=== PATIENT | male | born 1955 | race African-American/Black ===

== ENCOUNTER → 2017-09-27 | Outpatient (CLI) | payer OTHER ==
[~2017-09-27] MED LIST: ALL DAY ALLERGY10 M1 PO; ALLO100 PO; AMLO10 PO; AMLO5; ASPI81CH PO; ATEN50 PO; Aldactone25 MG PO; Allopurinol100 MG PO; Amlodipine Besyl5 MG PO; B Complex1 EAC2 PO; BUME2 PO; CALCAVITD PO; CETI5 PO; CHOL10002 PO; CILO100 PO; CILO50 PO; CITA20; CITA20 PO; CLOP75 PO; Ceftriaxone2 G1 IV; Celexa40 MG PO; Citalopram HBr20 MG PO; Cyclobenzaprine5 MG PO; EPIVIR 10 MG/ML PO; EPIVIR HBV PO; ERGO50000 PO; Flomax0.4 MG PO; HYDACE10B PO; HYDR-86; HYDR1TAB94 PO; IBUP800 PO; K-Dur 20 meq T20 MEQ PO; Keflex500 MG PO; LEVSOD50 PO; LEVSOD75 PO; LISI5 PO; Lipofen150 MG; Lofibra160 MG PO; Lopressor 25 mg25 MG PO; MAGOXI400 PO; METO2.5 PO; METO25 PO; METO5 PO; MULVITMIND PO; NIAC500 PO; NICO21TP; NORT25 PO; OMEP20ER PO; PARO20 PO; POTCHL20ER PO; PRAZ1; PRAZ2 PO; PRED10 PO; PRED20 PO; Percocet 5-3251 EACH PO; Prilosec Otc20 MG; SALS750 PO; SPIR25 PO; TAMS.4ER PO; TRAZ50 PO; TRAZAMINE PO; Vitamin B Comple1 EA PO; Vitamin D2000 UNIT PO
[2017-09-27 14:21] LABS: Creatinine, Urine Random 37.1 mg/dL (27.00-270.00); Protein, Urine Random 127.2 mg/dL (0.0-11.9)
== END ==
LOC: OLS 11:04 → LAB SHORT 11:04
PROVIDERS: Internal Medicine
DX: N18.3 Chronic kidney disease, stage 3 (moderate) (principal)
CPT/HCPCS: 82570; 84156

== ENCOUNTER → 2018-01-03 | Outpatient (CLI) | payer OTHER ==
[2018-01-03 10:09] LABS: Creatinine Urine 95.7 mg/dL (27.00-270.00); Protein, Urine Quantitative 161.9 mg/dL (0.0-11.9)
== END ==
LOC: LAB SHORT 09:07 → LAB 09:07
PROVIDERS: Internal Medicine
DX: N18.3 Chronic kidney disease, stage 3 (moderate) (principal)
CPT/HCPCS: 81050; 82570; 84156

== ENCOUNTER 2018-12-15 10:07 | Emergency (ER) | payer OTHER ==
[~2018-12-15] VITALS: Ht 177.8 cm; Wt 88.9 kg
[2018-12-15] MEDS ORDERED: TAMSULOSIN HCL0.4 MG PO (10:34)
[2018-12-15] MEDS ORDERED: Vitamin D2000 UNIT PO (10:34)
== END 2018-12-15 10:49 | disposition home or self-care (01) ==
LOC: ER 10:07
DX: S00.33XA Contusion of nose, initial encounter (principal); W21.11XA Struck by baseball bat, initial encounter; Z79.899 Other long term (current) drug therapy; Z91.013 Allergy to seafood; I13.0 Hypertensive heart and chronic kidney disease with heart failure and stage 1 through stage 4 chronic kidney disease, or unspecified chronic kidney disease; I50.9 Heart failure, unspecified; N18.9 Chronic kidney disease, unspecified; E03.9 Hypothyroidism, unspecified; E78.5 Hyperlipidemia, unspecified; F17.200 Nicotine dependence, unspecified, uncomplicated
CPT/HCPCS: 99283

== ENCOUNTER → 2019-01-13 | Outpatient (CLI) | payer OTHER ==
[~2019-01-13] MED LIST changes: +TAMSULOSIN HCL0.4 MG PO
[2019-01-13 19:06] LABS: BASOPHILS ABSOLUTE AUTO 0.06 K/mm3 (0.00-0.23); BASOPHILS PERCENT AUTO 1 % (0-2); EOSINOPHILS ABSOLUTE AUTO 0.09 K/mm3 (0.00-0.68); EOSINOPHILS PERCENT AUTO 2 % (0-6); Hemoglobin 17.5 g/dL (13.5-17.5); IMMATURE GRAN ABSOLUTE AUTO 0.04 K/mm3 (0.00-0.10); IMMATURE GRAN PERCENT AUTO 1 % (0-1); LYMPHOCYTES ABSOLUTE AUTO 1.46 K/mm3 (0.84-5.20); LYMPHOCYTES PERCENT AUTO 26 % (21-46); MONOCYTES ABSOLUTE AUTO 0.45 K/mm3 (0.16-1.47); MONOCYTES PERCENT AUTO 8 % (4-13); Mean Corpuscular HGB 32.8 pg (26.0-34.0); Mean Corpuscular HGB Conc 34.3 g/dL (31.5-36.5); Mean Corpuscular Volume 96 fL (80-100); Mean Platelet Volume 10.9 fL (9.1-12.4); NEUTROPHILS PERCENT AUTO 63 % (41-73); Platelet Count 309 K/mm3 (150-400); RDW Coefficient Variation 12.7 % (11.7-14.2); RDW Standard Deviation 45.2 fL (35.1-46.3); Red Blood Cell Count 5.34 M/mm3 (4.30-5.90)
[2019-01-13 19:29] LABS: Albumin, Blood 3.5 g/dL (3.4-5.0); Albumin/Globulin Ratio 0.7 (0.8-1.8); Alk Phos 129 U/L (50-136); Anion Gap 4 mmol/L (6-16); Aspartate Aminotrans (AST/SGOT 76 U/L (12-37); Bilirubin, Total 0.4 mg/dL (0.1-1.0); Blood Urea Nitrogen 26 mg/dL (8-24); Bun/Creatinine Ratio 16.8 (12.0-20.0); CHOL/HDL RATIO 2.4; CO2, Blood 30 mmol/L (21-32); Calcium, Blood 8.9 mg/dL (8.5-10.1); Chloride, Blood 103 mmol/L (98-108); Cholesterol 169 mg/dL (50-200); Creatinine, Blood 1.55 mg/dL (0.60-1.20); Globulin, Blood 5.1 g/dL (2.2-4.0); Glomerular Filtration Rate 48 (60-); Glucose, Blood 86 mg/dL (70-99); HDL Cholesterol 70 mg/dL (>39); LDL/HDL RATIO 1.2; Low Density Lipoprotein Chol 84 mg/dL (0-110); Potassium, Blood 4.2 mmol/L (3.5-5.5); Sodium, Blood 137 mmol/L (136-145); Total Protein, Blood 8.6 g/dL (6.4-8.2); Triglycerides 74 mg/dL (30-160); Very Low Density Lipoprot Chol 14 mg/dL (6-32)
[2019-01-13 19:32] LABS: C-Reactive Protein, High Sens. <O.160 mg/L (0.000-3.000)
[2019-01-13 19:38] LABS: Alanine Aminotransfer (ALT/SGP 80 U/L (12-78)
[2019-01-14 11:10] LABS: Antinuclear Antibody Screen Negative (Negative)
[2019-01-14 13:35] LABS: Rheumatoid Factor, Serum Negative (Negative)
== END | disposition home or self-care (01) ==
LOC: LAB SHORT 11:35 → LAB 11:35
PROVIDERS: Nurse Practitioner Family
DX: Z11.59 Encounter for screening for other viral diseases (principal); I10 Essential (primary) hypertension; F10.20 Alcohol dependence, uncomplicated; M19.90 Unspecified osteoarthritis, unspecified site; E55.9 Vitamin D deficiency, unspecified; N40.0 Benign prostatic hyperplasia without lower urinary tract symptoms
CPT/HCPCS: 80053; 80061; 82306; 83690; 84443; 85025; 86038; 86141; 86430; 86803; G0103

== ENCOUNTER → 2019-01-29 | Outpatient (CLI) | payer OTHER ==
[2019-01-29 16:06] LABS: Creatinine Urine 40.5 mg/dL (27.00-270.00)
== END | disposition home or self-care (01) ==
LOC: LAB SHORT 07:45 → LAB 07:45 → LAB FUT 01-27 13:30
PROVIDERS: Internal Medicine Nephrology
DX: E11.22 Type 2 diabetes mellitus with diabetic chronic kidney disease (principal); N18.2 Chronic kidney disease, stage 2 (mild); D63.1 Anemia in chronic kidney disease; E11.21 Type 2 diabetes mellitus with diabetic nephropathy; N25.81 Secondary hyperparathyroidism of renal origin; E55.9 Vitamin D deficiency, unspecified; R76.9 Abnormal immunological finding in serum, unspecified; R94.5 Abnormal results of liver function studies; R94.6 Abnormal results of thyroid function studies; D51.8 Other vitamin B12 deficiency anemias; D52.8 Other folate deficiency anemias; D50.9 Iron deficiency anemia, unspecified
CPT/HCPCS: 81050; 82043; 82570; 84156

== ENCOUNTER → 2019-03-19 | Outpatient (CLI) | payer OTHER ==
[2019-03-19 19:41] LABS: International Normalized Ratio 1.08; Prothrombin Time Results 11.4 Sec (9.7-11.5)
[2019-03-21 02:07] LABS: HBSAG SCREEN Negative (Negative)
== END | disposition home or self-care (01) ==
LOC: LAB 13:45 → LAB SHORT 13:45
PROVIDERS: Nurse Practitioner Family
DX: B18.2 Chronic viral hepatitis C (principal); N40.0 Benign prostatic hyperplasia without lower urinary tract symptoms
CPT/HCPCS: 84153; 85610

== ENCOUNTER → 2019-07-21 | Outpatient (CLI) | payer OTHER ==
[2019-07-21 18:03] LABS: BASOPHILS ABSOLUTE AUTO 0.03 K/mm3 (0.00-0.23); BASOPHILS PERCENT AUTO 1 % (0-2); EOSINOPHILS ABSOLUTE AUTO 0.04 K/mm3 (0.00-0.68); EOSINOPHILS PERCENT AUTO 1 % (0-6); Hematocrit 47.6 % (37.0-53.0); Hemoglobin 16.4 g/dL (13.5-17.5); IMMATURE GRAN ABSOLUTE AUTO 0.03 K/mm3 (0.00-0.10); IMMATURE GRAN PERCENT AUTO 1 % (0-1); LYMPHOCYTES ABSOLUTE AUTO 1.59 K/mm3 (0.84-5.20); LYMPHOCYTES PERCENT AUTO 28 % (21-46); MONOCYTES ABSOLUTE AUTO 0.52 K/mm3 (0.16-1.47); MONOCYTES PERCENT AUTO 9 % (4-13); Mean Corpuscular HGB 33.1 pg (26.0-34.0); Mean Corpuscular HGB Conc 34.5 g/dL (31.5-36.5); Mean Corpuscular Volume 96 fL (80-100); Mean Platelet Volume 10.7 fL (9.1-12.4); NEUTROPHILS ABSOLUTE AUTO 3.41 K/mm3 (1.96-9.15); NEUTROPHILS PERCENT AUTO 61 % (41-73); Platelet Count 262 K/mm3 (150-400); RDW Coefficient Variation 12.6 % (11.7-14.2); Red Blood Cell Count 4.96 M/mm3 (4.30-5.90); White Blood Cell Count 5.62 K/mm3 (4.00-11.30)
[2019-07-21 18:26] LABS: Albumin, Blood 3.2 g/dL (3.4-5.0); Albumin/Globulin Ratio 0.6 (0.8-1.8); Bilirubin, Total 1.1 mg/dL (0.1-1.0); Bun/Creatinine Ratio 13.1 (12.0-20.0); Calcium, Blood 9.8 mg/dL (8.5-10.1); Creatinine, Blood 1.68 mg/dL (0.60-1.20); Potassium, Blood 3.9 mmol/L (3.5-5.5); Total Protein, Blood 8.2 g/dL (6.4-8.2)
== END | disposition home or self-care (01) ==
LOC: LAB SHORT 16:38 → LAB 16:38
PROVIDERS: Nurse Practitioner Family
DX: B19.20 Unspecified viral hepatitis C without hepatic coma (principal)
CPT/HCPCS: 80053; 85025

== ENCOUNTER 2019-09-23 11:17 | Day surgery (SDC) | payer OTHER ==
[~2019-09-23] VITALS: Ht 177.8 cm; Wt 85.7 kg
[2019-09-23] MEDS ORDERED: Catapres-Tts 11 EACH (11:41)
[2019-09-23] MEDS ORDERED: LOSA25 (11:41)
[2019-09-23] MEDS ORDERED: OMEP20ER (11:42)
== END 2019-09-23 13:45 | disposition home or self-care (01) ==
LOC: ORSCSDS 11:17
PROVIDERS: Internal Medicine Gastroenterology
PROC: 0DB68ZX Excision of Stomach, Via Natural or Artificial Opening Endoscopic, Diagnostic (ICD-10-PCS; principal; 2019-09-23 12:45)
PROC: 0D757ZZ Dilation of Esophagus, Via Natural or Artificial Opening (ICD-10-PCS; principal; 2019-09-23 12:45)
DX: K21.9 Gastro-esophageal reflux disease without esophagitis (principal); R10.13 Epigastric pain; K22.2 Esophageal obstruction; B18.2 Chronic viral hepatitis C; Z13.810 Encounter for screening for upper gastrointestinal disorder; G47.33 Obstructive sleep apnea (adult) (pediatric); I10 Essential (primary) hypertension; F17.210 Nicotine dependence, cigarettes, uncomplicated; Z79.899 Other long term (current) drug therapy
CPT/HCPCS: 88305; J2704; J7120

== ENCOUNTER → 2019-10-08 | Outpatient (CLI) | payer MEDICARE, OTHER ==
[~2019-10-08] MED LIST changes: +Catapres-Tts 11 EACH; +LOSA25; +OMEP20ER
== END | disposition home or self-care (01) ==
LOC: LAB SHORT 16:22 → LAB 16:22
PROVIDERS: Nurse Practitioner Family
DX: R97.20 Elevated prostate specific antigen [PSA] (principal)
CPT/HCPCS: 84153

== ENCOUNTER → 2020-11-16 | Outpatient (CLI) | payer MEDICARE, OTHER ==
[~2020-11-16] MED LIST changes: +Acetaminophen325 M1 PO; +CHLO25 PO; +CLON.1 PO; +FAMO20 PO; +HYDRA25 PO; +LOSA25 PO; +ONDA4ODT MM; +Vitamin D2000 UNIT
[2020-11-16 19:35] LABS: Albumin, Blood 3.8 g/dL (3.4-5.0); Anion Gap 9 mmol/L (6-16); Blood Urea Nitrogen 13 mg/dL (8-24); CO2, Blood 28 mmol/L (21-32); Calcium, Blood 8.9 mg/dL (8.5-10.1); Chloride, Blood 98 mmol/L (98-108); Creatinine, Blood 1.44 mg/dL (0.60-1.20); Glomerular Filtration Rate 52 (60-); Glucose, Blood 93 mg/dL (70-99); Phosphorus, Blood 2.9 mg/dL (2.5-4.9); Potassium, Blood 3.1 mmol/L (3.5-5.5); Sodium, Blood 135 mmol/L (136-145)
== END | disposition home or self-care (01) ==
LOC: LAB 15:20 → LAB SHORT 15:20
PROVIDERS: Nurse Practitioner Family
DX: N18.30 Chronic kidney disease, stage 3 unspecified (principal)
CPT/HCPCS: 80069

== ENCOUNTER → 2021-02-27 | Outpatient (CLI) | payer MEDICARE, OTHER ==
[2021-02-27 18:20] LABS: BASOPHILS ABSOLUTE AUTO 0.05 K/mm3 (0.00-0.23); BASOPHILS PERCENT AUTO 1 % (0-2); EOSINOPHILS ABSOLUTE AUTO 0.18 K/mm3 (0.00-0.68); EOSINOPHILS PERCENT AUTO 3 % (0-6); Hematocrit 42.1 % (37.0-53.0); Hemoglobin 14.7 g/dL (13.5-17.5); IMMATURE GRAN ABSOLUTE AUTO 0.02 K/mm3 (0.00-0.10); IMMATURE GRAN PERCENT AUTO 0 % (0-1); LYMPHOCYTES ABSOLUTE AUTO 2.05 K/mm3 (0.84-5.20); LYMPHOCYTES PERCENT AUTO 31 % (21-46); MONOCYTES PERCENT AUTO 9 % (4-13); Mean Corpuscular HGB Conc 34.9 g/dL (31.5-36.5); Mean Corpuscular Volume 95 fL (80-100); Mean Platelet Volume 9.6 fL (9.1-12.4); NEUTROPHILS ABSOLUTE AUTO 3.79 K/mm3 (1.96-9.15); NEUTROPHILS PERCENT AUTO 57 % (41-73); Platelet Count 345 K/mm3 (150-400); RDW Coefficient Variation 12.9 % (11.7-14.2); RDW Standard Deviation 44.8 fL (35.1-46.3); Red Blood Cell Count 4.45 M/mm3 (4.30-5.90); White Blood Cell Count 6.69 K/mm3 (4.00-11.30)
[2021-02-27 18:44] LABS: Alanine Aminotransfer (ALT/SGP 26 U/L (12-78); Albumin, Blood 3.6 g/dL (3.4-5.0); Albumin/Globulin Ratio 0.7 (0.8-1.8); Alk Phos 131 U/L (50-136); Anion Gap 9 mmol/L (6-16); Aspartate Aminotrans (AST/SGOT 41 U/L (12-37); Bilirubin, Direct 0.1 mg/dL (0.0-0.3); Bilirubin, Indirect 0.4 mg/dL (0.1-0.7); Bilirubin, Total 0.5 mg/dL (0.1-1.0); Blood Urea Nitrogen 21 mg/dL (8-24); Bun/Creatinine Ratio 12.4 (12.0-20.0); CO2, Blood 30 mmol/L (21-32); Calcium, Blood 9.7 mg/dL (8.5-10.1); Chloride, Blood 99 mmol/L (98-108); Creatinine, Blood 1.69 mg/dL (0.60-1.20); Globulin, Blood 5.4 g/dL (2.2-4.0); Glomerular Filtration Rate 41 (60-); Glucose, Blood 95 mg/dL (70-99); Potassium, Blood 3.2 mmol/L (3.5-5.5); Sodium, Blood 138 mmol/L (136-145)
== END | disposition home or self-care (01) ==
LOC: LAB SHORT 16:36
PROVIDERS: Nurse Practitioner Family
DX: N18.30 Chronic kidney disease, stage 3 unspecified (principal); D63.1 Anemia in chronic kidney disease; C61 Malignant neoplasm of prostate
CPT/HCPCS: 80053; 82248; 84153; 85025

== ENCOUNTER → 2021-04-18 | Outpatient (CLI) | payer MEDICARE, OTHER ==
[2021-04-18 18:32] LABS: Alanine Aminotransfer (ALT/SGP 239 U/L (12-78); Albumin/Globulin Ratio 0.7 (0.8-1.8); Alk Phos 173 U/L (50-136); Anion Gap 7 mmol/L (6-16); Aspartate Aminotrans (AST/SGOT 465 U/L (12-37); Bilirubin, Direct 0.3 mg/dL (0.0-0.3); Bilirubin, Indirect 0.8 mg/dL (0.1-0.7); Bilirubin, Total 1.1 mg/dL (0.1-1.0); Blood Urea Nitrogen 15 mg/dL (8-24); CHOL/HDL RATIO 8.8; CO2, Blood 30 mmol/L (21-32); Calcium, Blood 9.3 mg/dL (8.5-10.1); Chloride, Blood 96 mmol/L (98-108); Cholesterol 175 mg/dL (50-200); Globulin, Blood 4.6 g/dL (2.2-4.0); Glucose, Blood 128 mg/dL (70-99); HDL Cholesterol 20 mg/dL (>39); Iron Serum 202 ug/dL (65-175); LDL/HDL RATIO Unable to Calculate; Low Density Lipoprotein Chol Unable to Calculate mg/dL (0-110); Percent Saturation 87.1 % (20.0-50.0); Potassium, Blood 2.6 mmol/L (3.5-5.5); Sodium, Blood 133 mmol/L (136-145); Total Iron Binding Capacity 232 ug/dL (250-450); Total Protein, Blood 7.6 g/dL (6.4-8.2); Triglycerides 477 mg/dL (30-160); Very Low Density Lipoprot Chol Unable to Calculate mg/dL (6-32)
[2021-04-18 18:54] LABS: Bun/Creatinine Ratio 9.8 (12.0-20.0); Creatinine, Blood 1.53 mg/dL (0.60-1.20); Ferritin, Serum 546 ng/mL (26-388); Glomerular Filtration Rate 46 (60-)
[2021-04-18 19:35] LABS: Albumin/Globulin Ratio 0.7 (0.8-1.8); Bilirubin, Total 1.1 mg/dL (0.1-1.0); Bun/Creatinine Ratio 9.3 (12.0-20.0); Calcium, Blood 9.1 mg/dL (8.5-10.1); Creatinine, Blood 1.62 mg/dL (0.60-1.20); Globulin, Blood 4.2 g/dL (2.2-4.0); Potassium, Blood 2.8 mmol/L (3.5-5.5); Total Protein, Blood 7.2 g/dL (6.4-8.2)
[2021-04-18 19:56] LABS: Prostate Specific Antigen 0.303 ng/mL (0.000-4.000)
== END | disposition home or self-care (01) ==
LOC: LAB SHORT 12:00
PROVIDERS: Internal Medicine Nephrology; Nurse Practitioner Family; Radiology Therapeutic Radiology
DX: C61 Malignant neoplasm of prostate (principal); E87.6 Hypokalemia; N18.2 Chronic kidney disease, stage 2 (mild); D63.1 Anemia in chronic kidney disease; R80.9 Proteinuria, unspecified; N25.81 Secondary hyperparathyroidism of renal origin; E55.9 Vitamin D deficiency, unspecified; E78.00 Pure hypercholesterolemia, unspecified; R76.9 Abnormal immunological finding in serum, unspecified; R94.5 Abnormal results of liver function studies; R94.6 Abnormal results of thyroid function studies; D51.8 Other vitamin B12 deficiency anemias; D52.8 Other folate deficiency anemias
CPT/HCPCS: 80053; 80061; 82248; 82607; 82728; 82746; 83540; 83550; 84100; 84153; 85018

== ENCOUNTER → 2021-08-30 | Outpatient (CLI) | payer MEDICARE, OTHER ==
[2021-08-30 17:48] LABS: Albumin, Blood 3.9 g/dL (3.4-5.0); Albumin/Globulin Ratio 0.9 (0.8-1.8); Bilirubin, Total 0.4 mg/dL (0.1-1.0); Bun/Creatinine Ratio 7.6 (12.0-20.0); Calcium, Blood 9.4 mg/dL (8.5-10.1); Creatinine, Blood 1.45 mg/dL (0.60-1.20); Globulin, Blood 4.4 g/dL (2.2-4.0); Total Protein, Blood 8.3 g/dL (6.4-8.2)
[2021-08-30 17:58] LABS: BASOPHILS ABSOLUTE AUTO 0.05 K/mm3 (0.00-0.23); BASOPHILS PERCENT AUTO 1 % (0-2); EOSINOPHILS ABSOLUTE AUTO 0.18 K/mm3 (0.00-0.68); EOSINOPHILS PERCENT AUTO 3 % (0-6); Hematocrit 43.6 % (37.0-53.0); Hemoglobin 14.8 g/dL (13.5-17.5); IMMATURE GRAN ABSOLUTE AUTO 0.04 K/mm3 (0.00-0.10); IMMATURE GRAN PERCENT AUTO 1 % (0-1); LYMPHOCYTES ABSOLUTE AUTO 1.41 K/mm3 (0.84-5.20); LYMPHOCYTES PERCENT AUTO 23 % (21-46); MONOCYTES ABSOLUTE AUTO 0.59 K/mm3 (0.16-1.47); MONOCYTES PERCENT AUTO 10 % (4-13); Mean Corpuscular HGB 32.5 pg (26.0-34.0); Mean Corpuscular HGB Conc 33.9 g/dL (31.5-36.5); Mean Corpuscular Volume 96 fL (80-100); Mean Platelet Volume 9.8 fL (9.1-12.4); NEUTROPHILS ABSOLUTE AUTO 3.94 K/mm3 (1.96-9.15); NEUTROPHILS PERCENT AUTO 64 % (41-73); Platelet Count 359 K/mm3 (150-400); RDW Standard Deviation 46.1 fL (35.1-46.3); Red Blood Cell Count 4.55 M/mm3 (4.30-5.90); White Blood Cell Count 6.21 K/mm3 (4.00-11.30)
== END | disposition home or self-care (01) ==
LOC: LAB 12:20 → LAB SHORT 12:20
PROVIDERS: Nurse Practitioner Family
DX: Z00.00 Encounter for general adult medical examination without abnormal findings (principal); D64.9 Anemia, unspecified
CPT/HCPCS: 80053; 85025

== ENCOUNTER 2021-11-21 11:42 | Day surgery (SDC) | payer OTHER ==
[~2021-11-21] VITALS: Ht 177.8 cm; Wt 81.9 kg
[~2021-11-21 11:42] MED LIST changes: +FENO145 PO; +Norco 5-325 Ta1 EACH PO
--- NOTE | 2021-11-21 12:51 | NUR ---
11/21/21 Claire1 PETRONA SHERIFF @ 3423, FUENTES @ 1569
== END 2021-11-21 13:57 | disposition home or self-care (01) ==
LOC: ORSCSDS 11:42
PROVIDERS: Ophthalmology
PROC: 08RJ3JZ Replacement of Right Lens with Synthetic Substitute, Percutaneous Approach (ICD-10-PCS; principal; 2021-11-21 13:00)
DX: H25.13 Age-related nuclear cataract, bilateral (principal); H21.81 Floppy iris syndrome; G47.33 Obstructive sleep apnea (adult) (pediatric); Z79.899 Other long term (current) drug therapy; Z85.46 Personal history of malignant neoplasm of prostate; I12.9 Hypertensive chronic kidney disease with stage 1 through stage 4 chronic kidney disease, or unspecified chronic kidney disease; N18.4 Chronic kidney disease, stage 4 (severe); B19.20 Unspecified viral hepatitis C without hepatic coma; K74.60 Unspecified cirrhosis of liver
CPT/HCPCS: J2001; J2250; J3010; J3301; J7040; V2632

== ENCOUNTER 2022-03-07 18:12 | Emergency (ER) | payer OTHER ==
[~2022-03-07] VITALS: Ht 177.8 cm; Wt 83.9 kg
[2022-03-07] MEDS ORDERED: AMLODIPINE BESYL5 MG PO (19:02)
== END 2022-03-07 20:27 | disposition home or self-care (01) ==
LOC: ER 18:12
DX: S06.0X0A Concussion without loss of consciousness, initial encounter (principal); E87.6 Hypokalemia; M54.50 Low back pain, unspecified; I10 Essential (primary) hypertension; I11.0 Hypertensive heart disease with heart failure; I50.9 Heart failure, unspecified; M10.9 Gout, unspecified; F17.210 Nicotine dependence, cigarettes, uncomplicated; Z79.899 Other long term (current) drug therapy; Z91.013 Allergy to seafood; W19.XXXA Unspecified fall, initial encounter
CPT/HCPCS: 70450; A9270; J1885

== ENCOUNTER 2022-03-08 11:59 | Day surgery (SDC) | payer OTHER ==
[~2022-03-08 11:59] MED LIST changes: +AMLODIPINE BESYL5 MG PO
--- NOTE | 2022-03-08 13:17 | NUR ---
03/08/[address] TO DISCUSS CANCELLING THE PROCEEDURE D/T POTASSIUM AND RECENT FALL RESULTING IN A HEAD INJURY. PT SEEN IN THE ER 03/07/22. PT UNDERSTANDS HE IS TO CONTINUE WITH POTASSIUM SUPPLEMENTS, FOLLOW UP WITH DR. MURRAY AND CONTACT HIS PRIMARY CARE PHYSICAIN TO DISCUSS RECURRENT FALLS. PT STATES HE FEELS "SO SO" TODAY, REPORTS NO HEAD PAIN. BP 122/76, O2% AT 100 HEART RATE 76 AND RESPITORY RATE 16. PER PTS FRIEND GRAY AT CHAIR SIDE PT HAS BEEN VERY "SLOW" WHEN IT COMES TO REMEMBERING OR ANSWERING QUESTIONS SINCE THE FALLS. DR. GREY TO FOLLOW UP WITH THE PATIENT TO RESCHEDULE ONCE POTASSIUM LEVELS RETURN TO NORMAL. PT TO HAVE LABS 03/09/22.
== END 2022-03-08 13:12 | disposition home or self-care (01) ==
LOC: ORSCSDS 11:59
DX: H25.12 Age-related nuclear cataract, left eye (principal); Z53.9 Procedure and treatment not carried out, unspecified reason
CPT/HCPCS: J2001; J3301; J7040

== ENCOUNTER 2022-03-16 23:53 | Inpatient (IN) | payer OTHER ==
[~2022-03-16] VITALS: Ht 177.8 cm; Wt 72.1 kg
[2022-03-17 00:36] LABS: Hematocrit 23.6 % (37.0-53.0); Hemoglobin 8.2 g/dL (13.5-17.5); Mean Corpuscular HGB 29.4 pg (26.0-34.0); Mean Corpuscular HGB Conc 34.7 g/dL (31.5-36.5); Mean Corpuscular Volume 85 fL (80-100); Mean Platelet Volume 10.2 fL (9.1-12.4); NRBC ABSOLUTE 0.05 K/mm3 (0.00-0.02); NRBC Auto 0.2 /100 WBC (0.0-0.2); Platelet Count 535 K/mm3 (150-400); RDW Coefficient Variation 14.8 % (11.7-14.2); RDW Standard Deviation 44.1 fL (35.1-46.3); Red Blood Cell Count 2.79 M/mm3 (4.30-5.90); White Blood Cell Count 20.43 K/mm3 (4.00-11.30)
[2022-03-17 00:39] LABS: Alanine Aminotransfer (ALT/SGP 13 U/L (12-78); Albumin, Blood 1.6 g/dL (3.4-5.0); Albumin/Globulin Ratio 0.2 (0.8-1.8); Alk Phos 144 U/L (50-136); Anion Gap 17 mmol/L (6-16); Aspartate Aminotrans (AST/SGOT 48 U/L (12-37); Bilirubin, Total 3.2 mg/dL (0.1-1.0); Blood Urea Nitrogen 20 mg/dL (8-24); Bun/Creatinine Ratio 17.1 (12.0-20.0); CO2, Blood 29 mmol/L (21-32); Calcium, Blood 9.1 mg/dL (8.5-10.1); Chloride, Blood 84 mmol/L (98-108); Creatinine, Blood 1.17 mg/dL (0.60-1.20); Ethanol (Alcohol), Blood, Med <3 mg/dL; Globulin, Blood 6.8 g/dL (2.2-4.0); Glomerular Filtration Rate 68 (60-); Glucose, Blood 125 mg/dL (70-99); Magnesium, Blood 2.4 mg/dL (1.6-2.4); Potassium, Blood 2.6 mmol/L (3.5-5.5); Sodium, Blood 130 mmol/L (136-145); Total Protein, Blood 8.4 g/dL (6.4-8.2)
[2022-03-17 00:53] LABS: BAND PERCENT MAN 3 % (0-8); BASOPHILS PERCENT MAN 0 % (0-2); EOSINOPHILS PERCENT MAN 0 % (0-6); LYMPHOCYTES ABSOLUTE MAN 1.02 K/mm3 (0.84-5.20); LYMPHOCYTES PERCENT MAN 5 % (21-46); METAMYELOCYTE PERCENT MAN 1 % (0-0); MONOCYTES ABSOLUTE MAN 0.81 K/mm3 (0.16-1.47); MONOCYTES PERCENT MAN 4 % (4-13); MYELOCYTE PERCENT MAN 1 % (0-0); NEUTROPHILS ABSOLUTE MAN 18.18 K/mm3 (1.96-9.15); SEG NEUTROPHILS PERCENT MAN 86 % (41-73); TOTAL CELLS COUNTED 100
[2022-03-17 01:44] LABS: Influenza A, PCR NEGATIVE (NEGATIVE); Influenza B, PCR NEGATIVE (NEGATIVE); Resp Syncytial Virus, PCR NEGATIVE (NEGATIVE); SARS-Cov-2 (COVID-19) PCR, MMC NEGATIVE (NEGATIVE)
[2022-03-17 02:51] LABS: Source, Urine Clean Catch
[2022-03-17 02:56] LABS: Blood, Urine 2+ (Neg); Glucose Qualitative, Urine Neg (Neg); Ketones, Urine 3+ (Neg); Leukocyte Esterase, Urine 1+ (Neg); Nitrite, Urine Pos (Neg); Protein, Urine 3+ (Neg); Urobilinogen, Urine 4+ (Normal)
[2022-03-17 03:02] LABS: Appearance, Urine Hazy (Clear); Bilirubin, Urine 3+ (Neg); Color, Urine Amber (P-Yellow)
[2022-03-17 03:03] LABS: Amorphous Light (0-Heavy); Bacteria Mod /hpf; Mucus Mod (0-Heavy); Red Blood Cells, Urine 0-2 /hpf (0-2); Squamous Epithelial Cells Rare /hpf (Few)
[2022-03-17 04:26] LABS: BASOPHILS ABSOLUTE AUTO 0.04 K/mm3 (0.00-0.23); BASOPHILS PERCENT AUTO 0 % (0-2); EOSINOPHILS ABSOLUTE AUTO 0.01 K/mm3 (0.00-0.68); EOSINOPHILS PERCENT AUTO 0 % (0-6); Hematocrit 21.6 % (37.0-53.0); Hemoglobin 7.6 g/dL (13.5-17.5); IMMATURE GRAN PERCENT AUTO 5 % (0-1); LYMPHOCYTES ABSOLUTE AUTO 1.08 K/mm3 (0.84-5.20); LYMPHOCYTES PERCENT AUTO 5 % (21-46); MONOCYTES PERCENT AUTO 7 % (4-13); Mean Corpuscular HGB 30.2 pg (26.0-34.0); Mean Corpuscular HGB Conc 35.2 g/dL (31.5-36.5); Mean Corpuscular Volume 86 fL (80-100); Mean Platelet Volume 10.3 fL (9.1-12.4); NEUTROPHILS ABSOLUTE AUTO 16.63 K/mm3 (1.96-9.15); NEUTROPHILS PERCENT AUTO 83 % (41-73); NRBC ABSOLUTE 0.02 K/mm3 (0.00-0.02); NRBC Auto 0.1 /100 WBC (0.0-0.2); Platelet Count 539 K/mm3 (150-400); RDW Coefficient Variation 14.8 % (11.7-14.2); Red Blood Cell Count 2.52 M/mm3 (4.30-5.90); White Blood Cell Count 20.06 K/mm3 (4.00-11.30)
[2022-03-17 04:52] LABS: Bun/Creatinine Ratio 17.1 (12.0-20.0); Calcium, Blood 8.7 mg/dL (8.5-10.1); Creatinine, Blood 1.11 mg/dL (0.60-1.20); Potassium, Blood 2.5 mmol/L (3.5-5.5)
--- NOTE | 2022-03-17 08:10 | NUR ---
RN NOTE I SPOKE TO DR JAEGER REGARDING ORDERS FOR 0800 AND 1000 LAB DRAWS. HE SAID TO DO ALL THE LABS AT 1000HRS. ALSO A SECOND HEAD CT ORDERED - WILL LET ME KNOW IF THAT SHOULD BE DONE.
[2022-03-17 08:58] LABS: U Amphetamine Screen Not Detected; U Barbituate Screen Not Detected; U Benzodiazapine Screen Not Detected; U Buprenorphine Screen Not Detected; U Cannabinoids Screen Not Detected; U Cocaine Screen Not Detected; U Methadone Screen Not Detected; U Methamphetamine Screen Not Detected; U Opiates Screen Not Detected; U Oxycodone Screen Not Detected; U Phencyclidine Screen Not Detected; U Propoxyphene Screen Not Detected
[2022-03-17 10:10] LABS: Hematocrit 21.9 % (37.0-53.0); Hemoglobin 7.5 g/dL (13.5-17.5)
[2022-03-17 10:26] LABS: Bun/Creatinine Ratio 17.6 (12.0-20.0); Creatinine, Blood 1.08 mg/dL (0.60-1.20)
[2022-03-17 11:01] LABS: Percent Saturation 51.6 % (20.0-50.0)
--- NOTE | 2022-03-17 13:25 | NUR ---
RN NOTE MR SANDRA IS ORIENTATED TO HIMSELF, TO THE HOSPITAL, NOT TO MONTH OR YEAR. HE WAS ABLE TO ANSWER QUESTIONS FOR HIS ADMISSION. PER CT ABD/PELVIS AND HEAD CTS WERE DONE FROM THE ER THIS MORNING, NONE FURTHER NEEDED. ON TELEMETRY NS IN THE 70S. IVF NS INFUSING AT 125CC/HR. POOR PO INTAKE, WATER ENCOURAGED, POOR APPETITE. DENIES NAUSEA. HE SAID HE HAS NOT HAD A BM FOR 4 WEEKS. ABDOMEN SOFT, TENDERNESS ACROSS LOWER ABDOMEN. I DID NOT HEAR BOWEL SOUNDS BUT ON TALKING WITH DR JAEGER HE DID HEAR SOME BOWEL SOUNDS. SMEAR OF FECES ONLY. CONTINENT OF SMALL URINE SMALL VOLUMES AT A TIME, ALSO INCONTINENT DRIBBLING OF URINE. BED BATH DONE, PULL UP UNDERWEAR APPLIED. UP SITTING IN THE CHAIR AND HE HAS AMBULATED IN THE HALLS WITH PT. 1 PERSON ASSIST WITH A WALKER, SOME UNSTEADYNESS OF GAIT. HE SAID THAT HE DOES NOT SWALLOW PILLS WELL, THAT HIS PCP HAD TALKED ABOUT CONVERTING HIS MEDS TO LIQUID. HE TOLERATED THEM CRUSHED IN APPLE SAUCE. CIWA SCORES AT 1. C/O GENERALISED ABD, BACK, CHEST ACHES THAT HE SAID HE TAKES 1 NORCO PER DAY AT HOME. HE LIVES AT HOME WITH HIS LANDLORD. CALL LIGHT IN REACH.
[2022-03-17 14:13] LABS: Hematocrit 25.2 % (37.0-53.0); Hemoglobin 8.6 g/dL (13.5-17.5)
[2022-03-17 17:05] LABS: Hematocrit 20.8 % (37.0-53.0); Hemoglobin 7.2 g/dL (13.5-17.5)
--- NOTE | 2022-03-17 18:08 | NUR ---
SHIFT SUMMARY SEE PRIOR NOTE. MR SANDRA SPENT MOST OF THIS AFTERNOON SITTING UP IN THE CHAIR, TRANSFERED BACK TO BED AND NOW APPEARS TO BE SLEEPING COMFORTABLY. NO CALLS FROM VESSEL SLAG WORKER. IVF CONTINUE AT 100CC/HR PT HAS HAD LITTLE TO EAT OR DRINK TODAY. HE HAS BEEN CONTINENT/INCONTINENT OF URINE AND SMEARS OF STOOL. CIWA SCORES AT 1. HE C/O GENERALISED ABD/BACK AND CHEST PAIN THIS MORNING, BUT DENIED ANY DISCOMFORT LATER THIS SHIFT. HE HAS BEEN INCONSISTANT IN THE INFORMATION HE HAS SHARED ABOUT HIS FAMILY AND HOME SITUATION. BED LOW, CALL LIGHT IN REACH, BED ALARM ON.
[2022-03-17 19:48] LABS: Hematocrit 20.2 % (37.0-53.0)
[2022-03-17 22:33] LABS: Stool Occult Bld Immuno 1 Negative (NEGATIVE)
[2022-03-17 23:38] LABS: Hematocrit 19.9 % (37.0-53.0); Hemoglobin 6.7 g/dL (13.5-17.5)
--- NOTE | 2022-03-18 04:40 | NUR ---
SHIFT SUMMARY 66 YR M ADMITTED ON 03/17/22 FOR SEPSIS. FULL CODE. NO ACUTE CHANGES THIS SHIFT. PT HAS BEEN UP TO THE BATHROOM WITH ASSISTANCE SEVERAL TIMES THIS SHIFT AND IS VERY UNSTEADY ON HIS FEET. HE SHUFFLES HIS FEET VERY CLOSE TOGETHER WHEN HE WALKS IF TO MAINTAIN HIS BALANCE. HE HAD 2 SMALL BOWEL MOVEMENTS THIS SHIFT. HE IS SLOW TO RESPOND WHEN SPOKEN TO AND APPEARS TO BE CONFUSED AT TIMES.
[2022-03-18 05:32] LABS: BASOPHILS ABSOLUTE AUTO 0.07 K/mm3 (0.00-0.23); BASOPHILS PERCENT AUTO 0 % (0-2); EOSINOPHILS ABSOLUTE AUTO 0.04 K/mm3 (0.00-0.68); EOSINOPHILS PERCENT AUTO 0 % (0-6); Hematocrit 18.6 % (37.0-53.0); Hemoglobin 6.1 g/dL (13.5-17.5); IMMATURE GRAN ABSOLUTE AUTO 0.74 K/mm3 (0.00-0.10); IMMATURE GRAN PERCENT AUTO 5 % (0-1); LYMPHOCYTES ABSOLUTE AUTO 1.05 K/mm3 (0.84-5.20); LYMPHOCYTES PERCENT AUTO 7 % (21-46); MONOCYTES ABSOLUTE AUTO 1.09 K/mm3 (0.16-1.47); MONOCYTES PERCENT AUTO 7 % (4-13); Mean Corpuscular HGB 29.5 pg (26.0-34.0); Mean Corpuscular HGB Conc 32.8 g/dL (31.5-36.5); Mean Corpuscular Volume 90 fL (80-100); NEUTROPHILS ABSOLUTE AUTO 12.64 K/mm3 (1.96-9.15); NEUTROPHILS PERCENT AUTO 81 % (41-73); NRBC ABSOLUTE 0.03 K/mm3 (0.00-0.02); NRBC Auto 0.2 /100 WBC (0.0-0.2); Platelet Count 471 K/mm3 (150-400); RDW Coefficient Variation 15.5 % (11.7-14.2); RDW Standard Deviation 48.1 fL (35.1-46.3); Red Blood Cell Count 2.07 M/mm3 (4.30-5.90); White Blood Cell Count 15.63 K/mm3 (4.00-11.30)
[2022-03-18 05:40] LABS: Calcium, Blood 8.3 mg/dL (8.5-10.1); Creatinine, Blood 1.06 mg/dL (0.60-1.20); Potassium, Blood 3.3 mmol/L (3.5-5.5)
--- NOTE | 2022-03-18 08:11 | NUR ---
RN NOTE SPOKE WITH DR CHARLTON WHO CONFIRMED ORDER FOR 1 UNIT PRBC'S TODAY. NOTIFIED OF VS FROM THIS AM, INCLUDING TEMPERATURE. SHE ORDERED PREMEDICATION OF BENEDRYL PLUS TYLENOL (ON JUL) 30 MINUTES PRIOR TO PRBC INFUSION. TECH HERE PRESENTLY FROM TYPE AND SCREEN.
[2022-03-18 08:30] LABS: Hematocrit 18.2 % (37.0-53.0)
--- NOTE | 2022-03-18 09:00 | NUR ---
RN NOTE I SPOKE WITH DR CHARLTON - SHE SAID TO CANCEL THE ORDER FOR 1 UNIT PRBC AND KEEP THE ORDER FOR 2 UNITS PRBCS. I TOLD HER I GOT A CALL FROM BLOOD BANK THAT THERE WILL BE A DELAY DUE TO ANTIBODIES.
--- NOTE | 2022-03-18 12:19 | NUR ---
RN NOTE MESSAGE LEFT WITH ANSWERING SERVICE FOR DR MAURER FOR ONCOLOGY CONSULT.
--- NOTE | 2022-03-18 12:48 | NUR ---
RN NOTE 1ST UNIT PRBC STARTED AFTER BENADRY PREMED. PT ADVISED OF POSSIBLE SIDE EFFECTS. MR LOPEZ IS AWAKE, EATING LUNCH, DRINKING MORE TODAY THAN YESTERDAY. DENIES C/O PAIN. DENIES SOB ON ROOM AIR. HE IS ORIENTATED TO HIMSELF, KNOWS HE'S AT [facility] AND WHY HE IS HERE, DOES NOT KNOW THE DATE/YEAR. SLIGHT FEVER THIS AM RESOLVED AFTER TYLENOL. BED LOW, CALL LIGHT IN REACH, BED ALARM ON.
--- NOTE | 2022-03-18 19:33 | NUR ---
SHIFT SUMMARY DURING THE DAY SHIFT MR SANDRA WAS ORIENTATED TO SELF, PLACE/SITUATION, NOT TO MONTH OR YEAR. HE RECEIVED 2 UNITS OF PRBC'S, THE SECOND UNIT FINISHING JUST AFTER NIGHT RN TOOK OVER CARE THIS EVENING. HE TOLERATED BOTH UNITS WELL, BP WAS ELEVATED TOWARDS THE END OF THE SECOND UNIT. NO SOB. HE WAS SEEN BY DR MORALEZ TODAY AND CHEST CT WAS DONE DURING THE TIME BETWEEN THE PRBC UNITS. H&H DEFERED UNTIL AFTER INFUSION COMPLETED. HIS APPETITE AND FLUID INTAKE IMPROVED FROM YESTERDAY. BED LOW, CALL LIGHT IN REACH, BED ALARM AND SCD ON.
[2022-03-18 21:39] LABS: Hematocrit 27.4 % (37.0-53.0); Hemoglobin 9.3 g/dL (13.5-17.5)
[2022-03-18 22:46] LABS: Cancer Antigen 19-9 27.6 U/mL (2.0-37.0); Carcinoembryonic Antigen 1.1 ng/mL (0.0-3.0)
[2022-03-19 01:13] LABS: Hematocrit 25.8 % (37.0-53.0); Hemoglobin 8.8 g/dL (13.5-17.5)
--- NOTE | 2022-03-19 04:27 | NUR ---
SHIFT SUMMARY 66 YR M ADMITTED ON 03/17/22 FOR UROSEPSIS. FULL CODE. PT IS STILL VERY CONFUSED AND HAS STATED SEVERAL TIMES THAT HIS FRIEND IS HERE TO TAKE HIM HOME. DESPITE CONSTANT REMINDING HE DOES NOT USE THE CALL LIGHT WHEN HE NEEDS ASSITANCE AMBULATING TO THE BEDSIDE COMMODE. HE WILL NOT KEEP A TELE MONITOR ON. HE PULLS ALL OF THE LEADS OFF WITHIN A FEW MINUTES OF THEM BEING PLACED, THEN ROLLS IT ALL INTO A BALL AND SETS IT ON HIS BEDSIDE TABLE. PT RECEIVED 2 UNITS OF BLOOD TODAY BUT LATEST LABS SHOW THE H&H ARE DECREASING. HE APPEARS TO BE UNCOMFORTABLE AND TOSSES AND TURNS FREQUENTLY. HE C/O LOWER BACK PAIN AND WAS GIVEN TYLENOL PER EMAR AND REPOSITIONED WITH PILLOWS PROPPED BEHIND HIS BACK.
[2022-03-19 05:30] LABS: BASOPHILS ABSOLUTE AUTO 0.07 K/mm3 (0.00-0.23); BASOPHILS PERCENT AUTO 0 % (0-2); EOSINOPHILS ABSOLUTE AUTO 0.03 K/mm3 (0.00-0.68); EOSINOPHILS PERCENT AUTO 0 % (0-6); Hematocrit 28.7 % (37.0-53.0); Hemoglobin 9.4 g/dL (13.5-17.5); IMMATURE GRAN ABSOLUTE AUTO 0.83 K/mm3 (0.00-0.10); IMMATURE GRAN PERCENT AUTO 5 % (0-1); LYMPHOCYTES ABSOLUTE AUTO 0.94 K/mm3 (0.84-5.20); LYMPHOCYTES PERCENT AUTO 6 % (21-46); MONOCYTES ABSOLUTE AUTO 1.11 K/mm3 (0.16-1.47); MONOCYTES PERCENT AUTO 7 % (4-13); Mean Corpuscular HGB 28.5 pg (26.0-34.0); Mean Corpuscular HGB Conc 32.8 g/dL (31.5-36.5); Mean Corpuscular Volume 87 fL (80-100); Mean Platelet Volume 9.9 fL (9.1-12.4); NEUTROPHILS ABSOLUTE AUTO 13.79 K/mm3 (1.96-9.15); NEUTROPHILS PERCENT AUTO 82 % (41-73); NRBC ABSOLUTE 0.06 K/mm3 (0.00-0.02); NRBC Auto 0.4 /100 WBC (0.0-0.2); Platelet Count 442 K/mm3 (150-400); RDW Coefficient Variation 16.4 % (11.7-14.2); RDW Standard Deviation 50.3 fL (35.1-46.3); White Blood Cell Count 16.77 K/mm3 (4.00-11.30)
[2022-03-19 06:27] LABS: Bun/Creatinine Ratio 12.7 (12.0-20.0); Calcium, Blood 9.2 mg/dL (8.5-10.1); Creatinine, Blood 1.02 mg/dL (0.60-1.20); Potassium, Blood 3.7 mmol/L (3.5-5.5)
--- NOTE | 2022-03-19 10:18 | NUR ---
CALLED DR MAURER OFFICE- DR MAURER HAD ORDERED AN ULTRASOUND GUIDED BIOPSY. RECIEVED A CALL FROM RADIOLOGY, THEY ARE UNABLE TO DO IT. IT WILL HAVE TO BE DONE THROUGH A SURGICAL CONSULT. INFORMED TECH INTERN MARIA A IN THE OFFICE AND SHE IS PASSING THE MESSAGE ON TO DR MAURER. NO CURRENT NEW ORDERS AT THIS TIME.
--- NOTE | 2022-03-19 14:36 | NUR ---
SPOKE TO DR JAEGER- NEW ORDER FOR 1L OF MAINTENANACE FLUIDS OK TO START AFTER PT HAS CT SCAN COMPLETED.
--- NOTE | 2022-03-19 16:23 | NUR ---
SHIFT SUMMARY- PT ALERT TO SELF PLACE AND SITUATION 1P SBA FOR TRANSFERS AND AMBULATION. PT AND OT WORKED WITH THE PT TODAY. PT WAS ABLE TO WALK TO THE [facility] FOR HIS ABDOMEN AND PELVIS CT THAT WAS REPEATED TODAY. PT HAS URINARY FREQUENCY. 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 IMAGING UNABLE TO PERFORM BIOPSY BASED ON PREVIOUS CT, GEN SURGERY CONSULTED, UNABLE TO PERFOM BIOPSY BASED ON PREVIOUS CT. NEW CT ORDERED AND COMPLETED THIS EVENING. PT IS BACK IN THE ROOM IN BED, CALL LIGHT IN REACH. PT HAS SLEPT FREQUENTLY T/O THE DAY, HE WAS ENCOURAGED TO EAT WITH FREQUENT QUES, HOWEVER HE DECLINED TO EAT VERY MUCH OF HIS FOOD. IVF INFUSING THROUGH THE LEFT HAND IV. NO CURRENT S&S OF DISTRESS NOTED, WILL CTM AND PASS ON TO NIGHT RN IN REPORT.
[2022-03-19 17:43] LABS: Hematocrit 28.6 % (37.0-53.0); Hemoglobin 9.5 g/dL (13.5-17.5)
[2022-03-20 05:11] LABS: International Normalized Ratio 1.63; Prothrombin Time Results 16.6 Sec (9.7-11.5)
[2022-03-20 05:13] LABS: BASOPHILS ABSOLUTE AUTO 0.06 K/mm3 (0.00-0.23); BASOPHILS PERCENT AUTO 0 % (0-2); EOSINOPHILS ABSOLUTE AUTO 0.04 K/mm3 (0.00-0.68); EOSINOPHILS PERCENT AUTO 0 % (0-6); Hematocrit 26.3 % (37.0-53.0); Hemoglobin 8.6 g/dL (13.5-17.5); IMMATURE GRAN ABSOLUTE AUTO 0.54 K/mm3 (0.00-0.10); IMMATURE GRAN PERCENT AUTO 4 % (0-1); LYMPHOCYTES PERCENT AUTO 6 % (21-46); MONOCYTES ABSOLUTE AUTO 1.33 K/mm3 (0.16-1.47); MONOCYTES PERCENT AUTO 9 % (4-13); Mean Corpuscular HGB 28.5 pg (26.0-34.0); Mean Corpuscular HGB Conc 32.7 g/dL (31.5-36.5); Mean Corpuscular Volume 87 fL (80-100); Mean Platelet Volume 10.1 fL (9.1-12.4); NEUTROPHILS ABSOLUTE AUTO 12.63 K/mm3 (1.96-9.15); NEUTROPHILS PERCENT AUTO 81 % (41-73); NRBC ABSOLUTE 0.04 K/mm3 (0.00-0.02); NRBC Auto 0.3 /100 WBC (0.0-0.2); Platelet Count 419 K/mm3 (150-400); RDW Standard Deviation 50.1 fL (35.1-46.3); Red Blood Cell Count 3.02 M/mm3 (4.30-5.90)
--- NOTE | 2022-03-20 05:23 | NUR ---
SHIFT SUMMARY PATIENT DENIES PAIN, NAUSEA, AND SHORTNESS OF BREATH. PATIENT IS A SBA WITH A FWW. PATIENT IS VERY FORGETFUL, BUT PLEASANT. PATIENT SLEPT ON AND OFF TONIGHT. PATIENT REPOSITIONS HIMSELF WELL. PATIENT HAS POOR PO INTAKE. PATIENT HAS POSSIBLE BIOPSY TODAY, 03/20. PATIENT IS PLEASANT AND COOPERATIVE WITH CARE.
[2022-03-20 05:30] LABS: Bun/Creatinine Ratio 9.5 (12.0-20.0); Calcium, Blood 8.8 mg/dL (8.5-10.1); Creatinine, Blood 1.05 mg/dL (0.60-1.20); Potassium, Blood 3.6 mmol/L (3.5-5.5)
--- NOTE | 2022-03-20 17:26 | NUR ---
SUMMARY- PT ALERT AND ORIENTED TO ALL EXCEPT EXACT DATE. ABLE TO AMBULATE SBA. PT VERY SLEEPY AND NAPPED ON/OFF ALL DAY. MIN PO INTAKE, BITES OF RIVERA FOR BREAKFAST, DECLINED LUNCH. TAKING IN FLUIDS. MEDICATED FOR BACK PAIN WITH ULTRAM. PT STATED INEFFECTIVE. CALLED JAEGER FOR HOME MED, PT DECLINED LATER WHEN OFFFERED, STATING PAIN CONTROLLED FOR NOW. PT HAD BX OF LYMPHNODE TODAY. PLAN FOR SNF- AWAITING PLACEMENT.
--- NOTE | 2022-03-20 18:00 | NUR ---
PT recommending pt go to SNF for rehab. Pt had biopsy taken today; remains a full code as he plans to seek treatment after rehab. Pt's mood is ok, but he does admit feeling "nervous/scared" but feels supported by roommate and friend. Attempted to visit further today but pt was out for biopsy, then with PT. Will attempt again tomorrow.
--- NOTE | 2022-03-21 05:03 | NUR ---
SHIFT SUMMARY: PATIENT IS A&O TO SELF AND PLACE. SLOW TO ANSWER QUESTIONS. VERY POOR APPETITE BUT PATIENT DID EAT TWO STRAWBERRY ICE CREAMS. ONLY TAKING TINY SIPS OF WATER. VOIDING 100ML OF DARK YASIR URINE AT A TIME. INC. OF URINE AT TIMES. PATIENT WAS ASSISTED TO THE BATHROOM WITH GAIT BELT, FWW AND ASSIT OF TWO. GAIT IS VERY SLOW SHUFFLING GAIT. TEMP. OF 100.4 ORALLY. TYLENOL WAS GIVEN WITH POOR EFFECT, RECHECK WAS 100.5 ORALLY. SOME BLANKETS WERE REMOVED AND HEAT IS LOWERED. PATIENT DENIES PAIN. BED ALRM IS ON.
[2022-03-21 05:59] LABS: BASOPHILS ABSOLUTE AUTO 0.03 K/mm3 (0.00-0.23); BASOPHILS PERCENT AUTO 0 % (0-2); EOSINOPHILS ABSOLUTE AUTO 0.05 K/mm3 (0.00-0.68); EOSINOPHILS PERCENT AUTO 0 % (0-6); Hematocrit 25.5 % (37.0-53.0); Hemoglobin 8.2 g/dL (13.5-17.5); IMMATURE GRAN ABSOLUTE AUTO 0.35 K/mm3 (0.00-0.10); IMMATURE GRAN PERCENT AUTO 3 % (0-1); LYMPHOCYTES ABSOLUTE AUTO 0.87 K/mm3 (0.84-5.20); LYMPHOCYTES PERCENT AUTO 6 % (21-46); MONOCYTES PERCENT AUTO 9 % (4-13); Mean Corpuscular HGB 28.4 pg (26.0-34.0); Mean Corpuscular HGB Conc 32.2 g/dL (31.5-36.5); Mean Corpuscular Volume 88 fL (80-100); Mean Platelet Volume 10.3 fL (9.1-12.4); NEUTROPHILS ABSOLUTE AUTO 11.17 K/mm3 (1.96-9.15); NEUTROPHILS PERCENT AUTO 82 % (41-73); NRBC ABSOLUTE 0.04 K/mm3 (0.00-0.02); NRBC Auto 0.3 /100 WBC (0.0-0.2); Platelet Count 386 K/mm3 (150-400); RDW Coefficient Variation 17.4 % (11.7-14.2); RDW Standard Deviation 52.4 fL (35.1-46.3); Red Blood Cell Count 2.89 M/mm3 (4.30-5.90); White Blood Cell Count 13.67 K/mm3 (4.00-11.30)
[2022-03-21 06:20] LABS: Albumin, Blood 1.4 g/dL (3.4-5.0); Albumin/Globulin Ratio 0.2 (0.8-1.8); Bilirubin, Total 1.7 mg/dL (0.1-1.0); Bun/Creatinine Ratio 11.1 (12.0-20.0); Calcium, Blood 8.8 mg/dL (8.5-10.1); Creatinine, Blood 1.08 mg/dL (0.60-1.20); Globulin, Blood 6.2 g/dL (2.2-4.0); Potassium, Blood 3.6 mmol/L (3.5-5.5); Total Protein, Blood 7.6 g/dL (6.4-8.2)
--- NOTE | 2022-03-21 11:18 | NUR ---
Supportive visit this AM. Pt sitting in recliner chair upon arrival. Pt A&OX3/4. Pt struggles to explain reason for hospital stay. Pt reports living in [place] and has children who live out of state. Pt reports 6/10 pain in his lower back. Continued supportive visit. Pt reports inability to take him self to appointments and has a friend who can assist with this on occasion. Pt appears lethargic and weak. Ended visit to allow Pt to rest. Spoke with Dr Maher and requested increase in pain medication frequency. Dr Maher will consider request. Spoke with JOSAFAT Bryan, discussed case and concerns. Palliative Care will remain available.
--- NOTE | 2022-03-21 18:45 | NUR ---
SUMMARY- PT A/O X3. SBA TO BATHROOM OR CHAIR USING GAIT BELT AND WALKER. HAD A SHOWER TODAY. PT CONT TO EAT ONLY SMALL AMOUNTS OF SOLIDS. PUSHED FLUIDS TODAY HAD OVER A LITER. URINE CONT TO BE ORANGE AND CONCENTRATED. GIVEN MILK OF MAG AND SENAKOT, STILL NO BM TODAY. PAIN CONTROLLED WITH LORTAB APPROX Q5 HRS. PT SAT UP IN CHAIR THROUGH LUNCH AFTER SHOWER AND HAD SEVERE BACK PAIN RELATED TO SITTING. BACK TO BED FROM [id number] NAPPED. PLAN FOR SNF, AWAITING CLEARANCE.
--- NOTE | 2022-03-22 05:35 | NUR ---
SHIFT SUMMARY: PATIENT IS A&O TO SELF, SLOW TO ANSWER QUESTIONS. VSS. REPORTS LOW BACK PAIN, MEDICATED WITH NORCO X1 WITH GOOD EFFECT. DIFFICULTY STARTING URINE STREAM PATIENT IS ABLE TO STAND AND PIVIT TO THE THE BEDSIDE COMMODE. POOR PO INTAKE PERSISTS. FLUIDS ENCOURAGED, PT ONLY TAKES SMALL SIPS OF WATER. PATIENT DID EAT TWO STRAWBERRY ICE CREAMS FOR SNACK. BED ALARM IS ON.
[2022-03-22 05:39] LABS: BASOPHILS ABSOLUTE AUTO 0.04 K/mm3 (0.00-0.23); BASOPHILS PERCENT AUTO 0 % (0-2); EOSINOPHILS ABSOLUTE AUTO 0.04 K/mm3 (0.00-0.68); EOSINOPHILS PERCENT AUTO 0 % (0-6); Hematocrit 27.5 % (37.0-53.0); Hemoglobin 8.8 g/dL (13.5-17.5); IMMATURE GRAN PERCENT AUTO 3 % (0-1); LYMPHOCYTES ABSOLUTE AUTO 1.08 K/mm3 (0.84-5.20); LYMPHOCYTES PERCENT AUTO 7 % (21-46); MONOCYTES ABSOLUTE AUTO 1.38 K/mm3 (0.16-1.47); MONOCYTES PERCENT AUTO 9 % (4-13); Mean Corpuscular HGB 28.3 pg (26.0-34.0); Mean Corpuscular Volume 88 fL (80-100); Mean Platelet Volume 10.2 fL (9.1-12.4); NEUTROPHILS ABSOLUTE AUTO 12.53 K/mm3 (1.96-9.15); NEUTROPHILS PERCENT AUTO 81 % (41-73); NRBC ABSOLUTE 0.03 K/mm3 (0.00-0.02); NRBC Auto 0.2 /100 WBC (0.0-0.2); Platelet Count 441 K/mm3 (150-400); RDW Coefficient Variation 17.8 % (11.7-14.2); RDW Standard Deviation 54.8 fL (35.1-46.3); Red Blood Cell Count 3.11 M/mm3 (4.30-5.90); White Blood Cell Count 15.47 K/mm3 (4.00-11.30)
--- NOTE | 2022-03-22 15:07 | NUR ---
Pt resting in bed and appears lethargic. Pt also appears to struggle with processing information. When asks questions Pt starts to answer question then quickly segues into non related topic with out completing answer. Pt reports having children that live in [facility] but does not know their phone numbers. Attempted to contact jean carlos Negro. No voicemail set up to leave message. Contacted roomalina Harmon. Faustino reports Pt has address book at bedside and may have phone numbers in book. Comb through address book with no contact information for children noted. Palliative Care will remain available.
--- NOTE | 2022-03-22 18:37 | NUR ---
SHIFT SUMMARY; PATIENT HAD UNEVENTFUL DAY. WAS PLEASANTLY CONFUSED DURING DAY. AT ONE TIME HE URINATED IN HIS EMPTY DRINKING CUP. HE ALSO SAT ON THE SIDE OF THE BED ASKING FOR HIS CLOTHING SO HE COULD CHECK OUT OF THIS HOTE. HE IS EASILY REDIRECTABLE AND IS COOPERATIVE WITH CARE. HE IS MEDICATED X 1 FOR PAIN TODAY AND SLEPT FOR A FEW HOURS THIS AFTERNOON. HIS VITAL SIGNS SHOW A ELEVATED B/P AND NORMAL HR AND RESPS. HE IS NOT FEBRILE. HIS LUNGS ARE DIM AND A SLIGHT WHEEZE NOTED TO UPPER LEFT LOBE IT CLEARS WITH COUGH. PATIENT USES CALL LIGHT TODAY AND IS ABLE TO MAKE HIS NEEDS KNOWN. WILL CONTINUE TO MONITOR THIS PATIENT CLOSELY UNTIL REPORT AND HAND OFF TO NOC SHIFT RN.
[2022-03-23 05:22] LABS: Hematocrit 26.9 % (37.0-53.0); Hemoglobin 8.5 g/dL (13.5-17.5); Mean Corpuscular HGB 27.6 pg (26.0-34.0); Mean Corpuscular HGB Conc 31.6 g/dL (31.5-36.5); Mean Corpuscular Volume 87 fL (80-100); Mean Platelet Volume 9.7 fL (9.1-12.4); NRBC ABSOLUTE 0.02 K/mm3 (0.00-0.02); NRBC Auto 0.1 /100 WBC (0.0-0.2); Platelet Count 437 K/mm3 (150-400); RDW Coefficient Variation 17.4 % (11.7-14.2); RDW Standard Deviation 53.5 fL (35.1-46.3); Red Blood Cell Count 3.08 M/mm3 (4.30-5.90); White Blood Cell Count 15.42 K/mm3 (4.00-11.30)
[2022-03-23 05:59] LABS: BAND PERCENT MAN 3 % (0-8); BASOPHILS PERCENT MAN 0 % (0-2); EOSINOPHILS PERCENT MAN 0 % (0-6); LYMPHOCYTES ABSOLUTE MAN 0.61 K/mm3 (0.84-5.20); LYMPHOCYTES PERCENT MAN 4 % (21-46); METAMYELOCYTE ABSOLUTE MAN 0.15 K/mm3 (0.00-0.00); METAMYELOCYTE PERCENT MAN 1 % (0-0); MONOCYTES ABSOLUTE MAN 0.77 K/mm3 (0.16-1.47); MONOCYTES PERCENT MAN 5 % (4-13); MYELOCYTE ABSOLUTE MAN 0.15 K/mm3 (0.00-0.00); MYELOCYTE PERCENT MAN 1 % (0-0); NEUTROPHILS ABSOLUTE MAN 13.72 K/mm3 (1.96-9.15); SEG NEUTROPHILS PERCENT MAN 86 % (41-73); TOTAL CELLS COUNTED 100
--- NOTE | 2022-03-23 06:19 | NUR ---
SHIFT SUMMARY: PATIENT IS CONFUSED, POURED HIS WATER OUT ON TO HIS BED AND URINATED IN THE CUP. NO BM SINCE 03/19/22, BS ARE HYPOACTIVE. PRN MOM WAS GIVEN AND PO FLUIDS ENCOURAGED, AWAITING RESULTS. PATIENT IS REPORTING LOW BACK CHRONIC PAIN AND LOW ABD. PAIN. BLADDER SCAN SHOWS 71 MLS PVR. NORCO AND ULTRAM ARE ALTERNATED FOR GOOD PAIN CONTROL.
--- NOTE | 2022-03-23 11:29 | NUR ---
Brief supportive visit this AM. Pt resting in bed with his eyes closed. Pt denies pain at this time. Pt remains with his eyes closed for much of the visit appearing to withdraw from conversation. With Pt's permission found brothswathi Estevez's phone number in address book. Appears to be the only family member listed in book. Pt agreeable for this RN to call brother. Brother Herb Carlene [phone] Called and spoke with Herb. Provided update and discussed concerns. Herb reports plan to call oldest brother Aaron and will be agreeable to assist with making decisions for Pt. Herb reports currently driving and will call back after processing information. Spoke with RN Regino Grady and relayed information. Palliative Care will remain available.
--- NOTE | 2022-03-23 14:39 | NUR ---
Spiritual Care | family request Pt. is awake in bed resting but he responds when I enter the room. The pt. is pleasant but somnolent throughout our visit. Establish rapport as we talk about his roots in [place]. Pt. denies phyical pain or any concerns that would produce anxiety. Consider matters of frankie and belief. Prayed with Pt. and pt, responded verbally with "God Bless You." Pt. also verbalized gratitude for the spiritual care visit.
--- NOTE | 2022-03-23 15:03 | NUR ---
Case Conference Note Spoke with JOSAFAT Guerra and discussed case. Mari obtained Pt's Advanced Directive from the [place]. AD suggests Pt would not want to pursue treatment for his cancer. Received call from Pt's sister Suha. Provided update and discussed plan to follow Pt's wishes on AD. Offered therapeutic listening and answered questions. Spoke with Mauricio Granger from [employer] and discussed case. Mauricio reports the importance of following Pt's wishes on AD and if 2 physcians deem treatment would not be benefical. Spoke with Dr Marshall and discussed case. Dr Marshall reports Pt also reported to him he is unable to make decisions for himself. Plan will be placement with hospice services. Palliative Care will remain available.
--- NOTE | 2022-03-23 15:24 | NUR ---
Late Entry from previous case conference note. Contacted Pt's healthcare veterans contact representative Caden. Provided update and discussed hospice based off Pt's wishes on AD. Caden reports being in agreement with Pt being placed with hospice services. Caden Dimas [phone] Called admitting and had Caden's phone number updated. Palliative Care will remain available.
--- NOTE | 2022-03-23 18:48 | NUR ---
SHIFT SUMMARY; PATIENT PLEASANTLY CONFUSED DURING DAY. FRIENDS COME TO SEE HIM THIS AFTERNOON. PER PALLIATIVE CARE PATIENT HAS FAMILY ON THERE WAY TO [place] AND WILL BE HERE IN THE NEXT DAY. ANAID FROM [place] IS IN CHART AND PER RICHARD FROM PALLIATIVE CARE PATIENT IS GOING TO GO ON HOSPICE IN THE NEXT FEW DAYS, CARE MANGEMENT JUST WAITING FOR DIRECTION FROM MD AND PALLIATIVE CARE AND PATIENT. PATIENT REFUSES MEALS TODAY AND ONLY HAS EATEN MINIMAL AMOUNT AT BREAKFAST.
[2022-03-24 05:51] LABS: BASOPHILS ABSOLUTE AUTO 0.06 K/mm3 (0.00-0.23); BASOPHILS PERCENT AUTO 0 % (0-2); EOSINOPHILS ABSOLUTE AUTO 0.05 K/mm3 (0.00-0.68); EOSINOPHILS PERCENT AUTO 0 % (0-6); Mean Corpuscular HGB 28.5 pg (26.0-34.0); Mean Corpuscular Volume 89 fL (80-100); Mean Platelet Volume 9.9 fL (9.1-12.4); NRBC ABSOLUTE 0.04 K/mm3 (0.00-0.02); NRBC Auto 0.3 /100 WBC (0.0-0.2); Platelet Count 466 K/mm3 (150-400); RDW Coefficient Variation 17.7 % (11.7-14.2); RDW Standard Deviation 55.2 fL (35.1-46.3); Red Blood Cell Count 2.81 M/mm3 (4.30-5.90); White Blood Cell Count 14.62 K/mm3 (4.00-11.30)
[2022-03-24 05:53] LABS: IMMATURE GRAN ABSOLUTE AUTO 0.36 K/mm3 (0.00-0.10); IMMATURE GRAN PERCENT AUTO 3 % (0-1); LYMPHOCYTES PERCENT AUTO 9 % (21-46); MONOCYTES ABSOLUTE AUTO 1.43 K/mm3 (0.16-1.47); MONOCYTES PERCENT AUTO 10 % (4-13); NEUTROPHILS ABSOLUTE AUTO 11.42 K/mm3 (1.96-9.15); NEUTROPHILS PERCENT AUTO 78 % (41-73)
[2022-03-24 06:18] LABS: Bun/Creatinine Ratio 9.6 (12.0-20.0); Calcium, Blood 8.7 mg/dL (8.5-10.1); Creatinine, Blood 1.15 mg/dL (0.60-1.20); Potassium, Blood 3.7 mmol/L (3.5-5.5)
--- NOTE | 2022-03-24 06:18 | NUR ---
BRICK OR BLOCK MAKER SUMMARY: A&O TO SELF AND SOMETIMES PERSON. EPISODIC CONFUSION. SPEECH SLOW TO ANSWER, AND SOMETIMES IT IS JUST A GRIMACE AND DECLINE OF OFFER OF PAIN MEDICATION. MORE AWAKE T/O THE NIGHT THE SHIFT WENT ON, REQUESTING TO GET UP AND MOVE, AFTER BEING GIVEN A PAIN MED. DIET CHANGED TO MECHANICAL SOFT. WEAKNESS AND CONFUSION CAUSING TO FORGET TO EAT OR HOW TO EAT. CORRECTIONS NURSE SUGGESTING PT RECEIEVE ASSISTANCE WITH FEEDING. NO BM. CONTINUES ON CONTACT PRECAUTIONS D/T Hx MRSA IN SPITE OF NOT HAVING AN OPEN WOUND. VSS. WILL REPORT TO ONCOMING RN.
--- NOTE | 2022-03-24 16:25 | NUR ---
DAYSHIFT SUMMARY This morning patient calling out for help, walked in room & observed patient holding IV. Helped patient use urinal & walked to recliner. Patient slowly shuffles when walking, does not use call-light, but needs help to stand up. Too weak to get up w/o help. Patient oriented to self, difficulty making needs known or explaining s/sx. Patient reported indigestion & ABD pain. Clinton given for pain, PRN effective. Code status changed today from FULL CODE to DNR. gave verbal orders for No IV access needed. Patient continues to be incontinet of urine, attempts to use urinal, ambulated to BR. Small BM today. Vitals stable. Will continue plan of care, awaiting discharge planning.
--- NOTE | 2022-03-24 18:08 | NUR ---
Pt's brother Herb called today, asking for an update on pt's status. I received permission from pt to update his brother on "anything he wants to know". He also states his sister Matias can get updates as well from nursing staff. I returned call to both Ehrb and Matias today, and Matias states her brother Shakir had said he wanted to be cremated years ago. She states she is hopeful that at least some of Shakir' ashes can be sent home to her in [place] when he passes away. However, I also spoke to Caden Wing who identified himself as a friend and landlord, and asked him if I could connect him with Shakir' family to exchange information. Caden raised his voice and stated, "Shakir and I have talked about this many times and his body will not be leaving [place], [facility]. He put me in charge of burying him and the only one who can change that is a administrative law judge". He did not accept pt's sister's phone number, and did say she was welcome to call him, and he would tell her the same thing. Unsure what the underlying issue is, but will wait until tomorrow and talk to Shakir a bit more. Shakir did state very clearly tonight, he wanted his brother Herb to make any decisions that are needed to be made for or about him. Will readress the situation tomorrow.
--- NOTE | 2022-03-25 07:16 | NUR ---
MOTOCROSS RACER SUMMARY: ALERT AND ORIENTED TO SELF, ONLY. DOES NOT CALL FOR ASSISTANCE AND DOES NOT CLEARLY COMMUNICATE NEEDS. TYPICALLY NOTIFIED BY SURVEILLANCE WHEN HE SITS UP ON EDGE OF BED. MEDICATED PRN PAIN x1 LAST NIGHT. BED CHANGE AND ATTENDS CHANGED AT 0500 AFTER VOIDING ACCIDENT. NO IV ACCESS. PLAN IS TO DC TO SNF VS HOSPICE.
--- NOTE | 2022-03-25 16:25 | NUR ---
DAYSHIFT SUMMARY No acute changes to patient status. Patient took all morning medications, requested PRN for pain. Gordon given for pain, PRN effective. Poor intake, encouraging fluids & snacks. Vitals stable. Will continue plan of care, awaiting placement.
--- NOTE | 2022-03-26 05:01 | NUR ---
PODIATRIST ORTHOPEDIC SUMMARY: ALERT AND ORIENTED TO SELF, ONLY. DOES NOT CALL FOR ASSISTANCE AND COMMUNICATES NEEDS OKAY, ONCE ASKED. ON [place]ER[place] SURVEILLANCE AND WAS NOTIFIED SEVERAL TIMES HE WAS UP FROM BED AND WHEN ASKED WHAT HE WAS DOING WOULD SIMPLY STATE, "GOTTA PEE". HOWEVER, UNABLE TO PRODUCE MUCH URINE. SAT ON BEDSIDE COMMODE ONCE WITHOUT PRODUCTION, EITHER. VS ELEVATED THIS AM. REFUSING ANY PRNS. NO IV ACCESS. AWAITING FAMILY KELLEN R/T [facility]. WILL REPORT TO ONCOMING RN.
--- NOTE | 2022-03-26 16:33 | NUR ---
DAYSHIFT SUMMARY Patient resting comfortably in bed, declined to get OOB and meals this shift. Reattempted fluids & meals, patient decline. Patient gets OOB when needing to void. Uses urinal, very little urine output this shift. Patient refused morning medications. Care Management working on discharge. Will continue plan of care.
--- NOTE | 2022-03-27 04:25 | NUR ---
SHIFT SUMMARY AOx1 - self only. Pt is very weak and takes a moment to catch his breath after repositioning in bed. Can communicate needs once asked. Able to ambulate with 1 assist, FWW+GB although he has a slow, shuffling gait. Tries to get up without calling for help, cooperative with care once offered. Assisted with urinal while standing, pt is producing around 100 ML per void of dark juan francisco urine. Slept well t/o most the night. Awaiting placement into hospice, possibly [facility] soon per D/C shutdown planner notes. VSS, no acute events.
[2022-03-27] MEDS ORDERED: ACET325 PO (11:41)
[2022-03-27] MEDS ORDERED: TUMS500 MG PO (11:42)
[2022-03-27] MEDS ORDERED: DOCU100 PO (11:43)
[2022-03-27] MEDS ORDERED: DULCOLAX400 MG/5 M PO (11:43)
[2022-03-27 11:44] LABS: SARS-Cov-2 (COVID-19) PCR, MMC NEGATIVE (NEGATIVE)
[2022-03-27] MEDS ORDERED: SENN187 PO (11:44)
[2022-03-27] MEDS ORDERED: MULVITA PO (11:44)
[2022-03-27] MEDS ORDERED: ONDA4 PO (11:44)
== END 2022-03-27 15:22 | disposition hospice, inpatient (51) | DRG 853 ==
LOC: ER 23:53 → MEDS 03-17 05:03
PROVIDERS: Emergency Medicine; Family Medicine; Internal Medicine; Internal Medicine Hematology & Oncology; Student in an Organized Health Care Education/Training Program; Surgery; ADMIT Internal Medicine
PROC: 3E02340 Introduction of Influenza Vaccine into Muscle, Percutaneous Approach (ICD-10-PCS; 2022-03-17)
PROC: 3E03329 Introduction of Other Anti-infective into Peripheral Vein, Percutaneous Approach (ICD-10-PCS; 2022-03-17)
PROC: 30233N1 Transfusion of Nonautologous Red Blood Cells into Peripheral Vein, Percutaneous Approach (ICD-10-PCS; 2022-03-18)
PROC: 07BD3ZX Excision of Aortic Lymphatic, Percutaneous Approach, Diagnostic (ICD-10-PCS; principal; 2022-03-20)
DX: A41.9 Sepsis, unspecified organism (principal); G92.8 Other toxic encephalopathy; C25.9 Malignant neoplasm of pancreas, unspecified; C77.2 Secondary and unspecified malignant neoplasm of intra-abdominal lymph nodes; N39.0 Urinary tract infection, site not specified; C34.90 Malignant neoplasm of unspecified part of unspecified bronchus or lung; E87.20 Acidosis, unspecified; I13.0 Hypertensive heart and chronic kidney disease with heart failure and stage 1 through stage 4 chronic kidney disease, or unspecified chronic kidney disease; F10.20 Alcohol dependence, uncomplicated; Z51.5 Encounter for palliative care; Z66 Do not resuscitate; R65.20 Severe sepsis without septic shock; N40.0 Benign prostatic hyperplasia without lower urinary tract symptoms; K59.00 Constipation, unspecified; E87.6 Hypokalemia; B96.89 Other specified bacterial agents as the cause of diseases classified elsewhere; M19.90 Unspecified osteoarthritis, unspecified site; M10.9 Gout, unspecified; I50.9 Heart failure, unspecified; N18.9 Chronic kidney disease, unspecified; D63.1 Anemia in chronic kidney disease; B19.20 Unspecified viral hepatitis C without hepatic coma; E03.9 Hypothyroidism, unspecified; F17.210 Nicotine dependence, cigarettes, uncomplicated; I73.9 Peripheral vascular disease, unspecified; E78.5 Hyperlipidemia, unspecified; F43.10 Post-traumatic stress disorder, unspecified; M79.604 Pain in right leg; M79.605 Pain in left leg; G89.29 Other chronic pain; Z20.822 Contact with and (suspected) exposure to COVID-19; Z98.890 Other specified postprocedural states; Z89.422 Acquired absence of other left toe(s); Z23 Encounter for immunization; Z91.013 Allergy to seafood; Z79.899 Other long term (current) drug therapy; Z79.891 Long term (current) use of opiate analgesic
CPT/HCPCS: 0241U; 36415; 49180; 70450; 71045; 71260; 74170; 74176; 77012; 80048; 80053; 81001; 82140; 82274; 82378; 82607; 82728; 82746; 83540; 83550; 83605; 83735; 83880; 84484; 85014; 85018; 85025; 85610; 85730; 86301; 86850; 86870; 86900; 86901; 86902; 86905; 86922; 87040; 87086; 88305; 88341; 88342; 90686; 93005; 93010; 96365; 96368; 97110; 97116; 97129; 97130; 97161; 97166; 97530; 97535; 99285-25; A9270; G0480; J0696; J1650; J2916; J3370; J3480; J7030; J7050; J7120; P9016; Q9967; U0004